=== PATIENT | female | born 1970 | race African-American/Black ===

== ENCOUNTER 2016-05-17 19:45 | Emergency (ER) | payer BC ==
[2016-05-17 20:21] VITALS: BP 108/65
--- NOTE | 2016-05-17 21:15 | UC ---
Israel Kelly Adam, scribed for Gail Logan DO on 05/17/16 at 2056 . General HPI - HPI Summary HPI Summary: Pt is a 46 year old female presenting with myalgia and rash. 2 days ago she began to feel achy with no fever or congestion. Yesterday the aches continued so she took ibuprofen. When she went to work today the aches were worse and she began to feel burning and tingling where her clothes touch her skin. 2 hours ago she noticed a rash on her back and left side which is slightly itchy, very burning and painful. It was aggravated by her bra so she removed it. She also c/ o mild BROTHERS. No sore throat, ear ache, eye discharge, CP, SOB, cough, rhinorrhea, dysuria, N/V/D, abdominal pain. PMHx of GERD. Negative tobacco/alcohol use. FMHx of cancer. - History of Current Complaint Chief Complaint: UCRash Stated Complaint: SKIN COMPLAINT Time Seen by Provider: 05/17/16 20:30 Hx Obtained From: Patient Onset/Duration: Gradual Onset, Lasting Days, Still Present Onset Severity: Mild Current Severity: Moderate Associated Signs & Symptoms: Positive: Other - Myalgia, rash, burning/tingling. Negative: Abdominal Pain, Cough, Chest Pain, Diaphoresis, Fever, Headache, Immunocompromised, Nausea, SOB, Vomiting, Wheezing - Allergy/Home Medications Allergies/Adverse Reactions: Allergies Allergy/AdvReac Type Severity Reaction Status Date / Time No Known Allergies Allergy Verified 05/17/16 20:21 Home Medications: Home Medications Docusate CAP* [Colace Cap*] 100 mg PO DAILY 05/17/16 [History Confirmed 05/17/16 ] Multiple Vitamins W/ Minerals [Multivitamin Adult] 1 chw PO DAILY 05/17/16 [ History Confirmed 05/17/16] Ranitidine HCl [Zantac] 150 mg PO DAILY 05/17/16 [History Confirmed 05/17/16] PMH/Surg Hx/FS Hx/Imm Hx Endocrine History Of: Denies: Diabetes Cardiovascular History Of: Denies: Cardiac Disorders, Hypertension, Congestive Heart Failure GI/ History Of: Reports: Gastroesophageal Reflux Denies: Renal Disease Cancer History Of: Denies: Breast Cancer - Surgical History Surgical History: None - Family History Known Family History: Positive: Other - Cancer Negative: Cardiac Disease, Hypertension, Diabetes - Social History Occupation: Employed Full-time Lives: With Family - Alcohol Use: None Substance Use Type: None Smoking Status (MU): Never Smoked Tobacco - Immunization History Most Recent Influenza Vaccination: 2017 Review of Systems Constitutional: Negative Skin: Rash Eyes: Negative ENT: Negative Respiratory: Negative Cardiovascular: Negative Gastrointestinal: Negative Genitourinary: Negative Motor: Negative Neurovascular: Negative Musculoskeletal: Myalgia Neurological: Other - Tingling/burning where clothes touch skin Psychological: Negative All Other Systems Reviewed And Are Negative: Yes Physical Exam Triage Information Reviewed: Yes Appearance: Well-Appearing, No Pain Distress, Well-Nourished Vital Signs: Initial Vital Signs Temp 98.7 F 05/17/16 20:16 Pulse 86 05/17/16 20:16 Resp 16 05/17/16 20:16 BP 108/65 05/17/16 20:16 Pulse Ox 100 05/17/16 20:16 Eyes: Positive: Conjunctiva Clear. Negative: Discharge ENT: Positive: Hearing grossly normal. Negative: Muffled/hoarse voice Neck exam: Normal Neck: Positive: Supple Respiratory: Positive: Lungs clear, Normal breath sounds, No respiratory distress, No accessory muscle use Cardiovascular: Positive: RRR, No Murmur Musculoskeletal Exam: Normal Neurological: Positive: Alert, Muscle Tone Normal Psychological Exam: Normal Psychological: Positive: Age Appropriate Behavior Skin: Positive: Other - Blistery vesicular erythematous rash across the left thorax. Dermatomal distribution not crossing the midline. Course/Dx - Differential Dx - Multi-Symptom Differential Diagnoses: Other - contact dermatitis, cellulitis Provider Diagnoses: Shingles Discharge - Discharge Plan Condition: Stable Disposition: HOME Prescriptions: HYDROcodone/ACETAMIN 5-325 MG* [[place] 5-325 TAB*] 1 tab PO Q6H PRN #14 tab MDD 4 TABS PRN Reason: Pain ValACYclovir (*) [Valtrex (*)] 1 gm PO TID #21 tab Patient Education Materials: Shingles (ED) Referrals: Angie Ceballos MD [Primary Care Provider] - (follow up in 4-6 days) Additional Instructions: VALTREX: VALTREX is used to treat infections caused by the Herpes family of viruses. It's available as capsules or ointment. VALTREX is most effective if started at the first sign of the viral outbreak. It can decrease the severity and duration of symptoms. However, it doesn't eliminate the virus from the body completely. If you're prone to repeated outbreaks of herpes, you'll continue to have attacks. Take the pills for the full recommended course. Occasionally, mild nausea or headaches may occur. Call the doctor if you develop wheezing, itching, rash, shortness of breath , or lightheadedness. ORAL NARCOTIC MEDICATION: You have been given a prescription for pain control. This medication is a narcotic. It's best taken with food, as nausea can result if taken on an empty stomach. Don't operate machinery or drive within six hours of taking this medication. Do not combine this medicine with alcohol, or with any medication which can cause sedation (such as cold tablets or sleeping pills) unless you get permission from the physician. Narcotics tend to cause constipation. If possible, drink plenty of fluids and eat a diet high in fiber and fruits. The documentation as recorded by the denisibIsrael horowitz Adam accurately reflects the service I personally performed and the decisions made by me, Gail Logan DO.
== END 2016-05-17 21:00 | disposition home or self-care (01) ==
LOC: UCEAST 19:45
DX: B02.9 Zoster without complications (principal)
CPT/HCPCS: 99212; G0463